=== PATIENT | female | born 1990 ===

== ENCOUNTER 2021-03-08 12:39 | Inpatient (IN) | payer MEDICAID ==
[2021-03-08] MEDS ORDERED: Oxytocin/Normal Saline 60 UNIT/1,000 ML BAG ONE (12:51)
[2021-03-08] MEDS ORDERED: ePHEDrine 50 MG/ML SDV IVPUSH PRN (13:02)
[2021-03-08] MEDS ORDERED: Acetaminophen/oxyCODONE 325-5 MG Tab PO PRN (13:02)
[2021-03-08] MEDS ORDERED: Tranexamic Acid 1,000 MG in Sodium Chloride 0.9% 100 ML IV PRN ×4 (13:02)
[2021-03-08] MEDS ORDERED: Oxytocin 10 Units/1 ML SDV IM PRN (13:02)
[2021-03-08] MEDS ORDERED: Methylergonovine 0.2 MG/1 ML Amp IM PRN (13:02)
[2021-03-08] MEDS ORDERED: Naloxone 2 MG/2 ML Syringe IVPUSH PRN (13:02)
[2021-03-08] MEDS ORDERED: Sodium Chloride 0.9% 10 ML Syringe FLUSH PRN (13:02)
[2021-03-08] MEDS ORDERED: Misoprostol 400 MCG (4 X 100 MCG TAB) RECTAL PRN (13:02)
[2021-03-08] MEDS ORDERED: Carboprost Tromethamine 250 MCG/1 ML Amp IM PRN ×2 (13:02)
[2021-03-08] MEDS ORDERED: Citric Acid/Sodium Citrate Solution 30 ML Cup PO ONE (13:02)
[2021-03-08] MEDS ORDERED: diphenhydrAMINE 50 MG/ML SDV IVPUSH PRN (13:02)
[2021-03-08] MEDS ORDERED: Methylergonovine 0.2 MG Tab PO PRN (13:02)
[2021-03-08] MEDS ORDERED: Acetaminophen 325 MG Tab PO PRN (13:02)
[2021-03-08] MEDS ORDERED: Oxytocin/Normal Saline 30 UNIT/500 ML BAG IV SCH (13:15)
[2021-03-08] MEDS ORDERED: Lactated Ringers 1,000 ML IV SCH ×2 (13:15)
[2021-03-08] MEDS ORDERED: Ketorolac 30 MG/ML SDV IVPUSH ONE (13:31)
[2021-03-08] MEDS ORDERED: Morphine PF 10 MG/10 ML SDV ONE (13:31)
--- NOTE | 2021-03-08 13:32 | HP ---
CHIEF COMPLAINT: "I am having contractions and some bleeding." HISTORY OF PRESENT ILLNESS: Ms. Virk is a 31-year-old, 5, para 3-1-0-4 female, last menstrual period unsure. EDC is 03/20/2021, EGA 38 and 1/7 weeks' gestation who reports to [facility] in the Labor and Delivery Department by ambulance from [place]. She has been having some contractions and bloody show. She has had 4 previous sections, and in her last section she did have a dehiscence of the uterine scar, so we do not want her to labor at all. She denies any nausea, vomiting, or diarrhea. No fever or chills. No hematochezia, hematemesis, or hematuria. No dysuria, frequency, or urgency with urination. No leg pain, leg edema, or back pain. No headaches, blurred vision, epigastric pain, or scotomata. PAST MEDICAL HISTORY: Positive for hepatitis C, depression, anxiety, posttraumatic stress disorder, but no history of diabetes, hypertension, heart disease, seizure disorder, thyroid disorder, thromboembolic disease, asthma, or breast lesions. FAMILY HISTORY: Positive for arthritis, gallbladder issues, diabetes, prostate cancer, depression, anxiety, and stroke. SOCIAL HISTORY: She smokes 2 to 3 cigarettes per day. She denies any alcohol use or illicit drug use. She does not use caffeine. She has no domestic violence issues. She feels safe at home. Her significant other is Gilberto Bains Junior. They live in [place]. GYNECOLOGICAL HISTORY: Menarche at age 14. She has had no history of STIs or abnormal Pap smears. OBSTETRICAL HISTORY: 05/02/2010, delivery of a 6 pounds 13 ounces female infant via section at term. 12/25/2011, delivery of a 34 and 6/7 week viable male infant via section. 07/10/2018, delivery of a viable female infant at 38 and 6/7 weeks' gestation, weighing 6 pounds 6 ounces. 12/13/2019, delivery of a viable male infant via repeat section in [place] at term. PAST SURGICAL HISTORY: section x4. MEDICATIONS: vitamins. ALLERGIES: No known drug allergies. LABORATORY DATA: Blood type O positive, rubella immune, syphilis nonreactive, hepatitis B surface antigen negative, HIV nonreactive, group B strep negative, hepatitis C positive with a quantitative positive of [id number]. ASSESSMENT: 1. 38 and 1/7 week intrauterine . 2. Previous section x4. 3. Jennie with bloody show noted. 4. Previous section with a uterine dehiscence. 5. Positive cannabis on urine drug screen during the . PLAN: 1. The patient is here for a repeat section. 2. The risks, benefits, complications, and side effects of the procedure including infection, bleeding, injury to the bowel, bladder, ureters, blood vessels, and other organs were discussed with the patient. She understands this and all questions were answered. 3. Informed consent obtained and signed. 4. The patient received 2 g of Ancef IV before the procedure. 5. We discussed the risk of having a fifth section and all the complications that can occur with it including hysterectomy, hemorrhage. [facility] /[id number]
[2021-03-08] MEDS: Lactated Ringers 1,000 ML IV SCH (16:30)
[2021-03-08] MEDS: Ondansetron 4 MG/2 ML SDV IVPUSH PRN ×2 (16:38→20:39)
--- NOTE | 2021-03-08 17:10 | OR ---
DATE: 03/08/2021 PREOPERATIVE DIAGNOSES: 1. 38 and 1/7 week intrauterine . 2. Early labor. 3. Previous section x4. 4. Previous uterine dehiscence. POSTOPERATIVE DIAGNOSES: 1. 38 and 1/7 week intrauterine . 2. Early labor. 3. Previous section x4. 4. Previous uterine dehiscence. 5. Delivery of a viable male weighing 7 pounds 6 ounces, 20 inches long with score of 8 at 1 minute, 9 at 5 minutes. PROCEDURE: Repeat low-transverse section via Pfannenstiel skin incision. ASSISTANTS: 1. Valeria Mcdonnell MD. 2. Chip Link MD, 3rd year, vice president payer. COMPLICATIONS: None. FLUIDS: Crystalloids plus LR. DRAINS: Foster catheter. PATHOLOGY: None sent. ANESTHESIA: Spinal anesthesia with Duramorph. ESTIMATED BLOOD LOSS: 700 mL. FINDINGS: Normal uterus, tubes, and ovaries. She had a large amount of scarring in the subcutaneous tissue and omental-to- anterior abdominal wall adhesions. Viable male weighing 7 pounds 6 ounces, 20 inches long with score of 9 at 1 minute, 9 at 5 minutes. DETAILS OF PROCEDURE: The patient was taken to the operating room with an IV running. She was placed supine on the operating room table. After adequate spinal anesthesia was obtained, she was prepped and draped in usual sterile fashion in the dorsal supine position with a leftward tilt. A Pfannenstiel skin incision was made through a previous scar and this was carried down to the fascia. The fascia was nicked in the midline, extended laterally. The rectus muscles were already in the midline and I did not have to separate them through the length of the peritoneal cavity into where the uterus was located very close to the bladder. The bladder was scarred and very high. We dissected the bladder down some and took off the omentum from the anterior abdominal wall that was blocking the uterus. Excellent hemostasis was noted. A bladder blade was placed. Low-transverse incision in the uterus was accomplished. This was extended laterally. The 's head was then brought through the incision site as well as rest of the . The nose and mouth were suctioned. The cord was clamped and cut. The was handed off to the awaiting nurses in attendance. Cord blood was obtained. The placenta was then delivered by simple expression intact. The uterus was then externalized and cleared of all clots and debris. The uterus was then reapproximated with 2- layered closure of #1 Vicryl suture in a running, locked fashion. Excellent hemostasis was noted. The uterus, tubes, ovaries were rechecked. They all appeared normal and there was excellent hemostasis. The uterus was returned to the abdomen. The gutters were cleared of all clots and debris. Excellent hemostasis was again noted. At this point, the rectus muscles and peritoneum were reapproximated the best we could. Because of all the scarring and how thinned out the tissue was, it was very difficult, but we did bring them together with 0 chromic suture in a running, nonlocked fashion. Excellent hemostasis was noted. At this point, the fascia was then reapproximated with 0 PDS suture in a running, nonlocked fashion. Excellent hemostasis was noted. I then undermined the skin edges because the scarring was puckering it terribly. So after undermining, there was good tissue reapproximation. Again, irrigation with sterile water occurred and the skin was reapproximated with 3-0 Monocryl suture in a running subcuticular fashion. Once the skin was closed, Dermabond was placed as a dressing. The patient tolerated the procedure quite well. All sponges, needle, and instrument counts were correct by the nurse in attendance x2. There was clear yellow urine noted to emanate from the Foster catheter throughout the entire procedure. The patient received 2 g of Ancef IV before the procedure. The patient received 20 units of Pitocin IV after delivery of the placenta. The patient was taken to PACU awake in stable condition. [facility] /[id number] ALAN
[2021-03-08] MEDS: Simethicone 80 MG Tab.Chew PO SCH (20:34)
[2021-03-08] MEDS: Ketorolac 30 MG/ML SDV IVPUSH SCH (20:41)
[2021-03-09] MEDS: Ketorolac 30 MG/ML SDV IVPUSH SCH ×2 (03:02→10:06)
[2021-03-09] MEDS: Lactated Ringers 1,000 ML IV SCH (06:28)
--- NOTE | 2021-03-09 09:41 | PCM.SURGPN ---
- General Info Date of Service: 03/09/21 (PPD/POD # 1 S/P Repeat LTC/S) Date of Surgery/Procedure: 03/08/21 POD#: 1 Admission Diagnosis/Problem: section Functional Status: Reports: Pain Controlled, Tolerating Diet, Ambulating - Review of Systems General: Reports: No Symptoms HEENT: Reports: No Symptoms Pulmonary: Reports: No Symptoms Cardiovascular: Reports: No Symptoms Gastrointestinal: Reports: No Symptoms Genitourinary: Reports: No Symptoms Musculoskeletal: Reports: No Symptoms Skin: Reports: No Symptoms Neurological: Reports: No Symptoms Psychiatric: Reports: No Symptoms - Patient Data Vitals - Most Recent: Last Vital Signs Temp 97.8 F 03/09/21 00:00 Pulse 83 03/09/21 00:00 Resp 16 03/09/21 00:00 BP 89/59 L 03/09/21 00:00 Pulse Ox 96 03/09/21 00:00 Weight - Most Recent: 153 lb I&O - Last 24 Hours: Intake & Output 03/08/21 03/09/21 03/09/21 22:59 06:59 14:59 Intake Total 135 Output Total 125 200 Balance 10 -200 Lab Results Last 24 Hrs: Laboratory Results - last 24 hr 03/08/21 03/08/21 03/09/21 Range/Units 13:20 13:20 06:05 WBC 10.2 H 10.0 (5.0-10.0) 10^3/uL RBC 3.98 L 3.22 L (4.2-5.4) 10^6/uL Hgb 11.4 L 9.2 L D (12.0-16.0) g/dL Hct 35.1 L 28.6 L (37.0-47.0) % MCV 88.2 88.8 (80-100) fL MCH 28.6 28.6 (27.0-34.0) pg MCHC 32.5 L 32.2 L (33.0-35.0) g/dL Plt Count 140 L 139 L (150-450) 10^3/uL Neut % (Auto) 78.8 H (42.2-75.2) % Lymph % (Auto) 14.6 L (20.5-50.1) % Dade % (Auto) 4.9 (2-8) % Eos % (Auto) 1.4 (1.0-3.0) % Baso % (Auto) 0.3 (0.0-1.0) % Blood Type O POSITIVE Gel Antibody Screen Negative Med Orders - Current: Current Medications Acetaminophen (Acetaminophen 325 Mg Tab) 650 mg PO Q6H PRN PRN Reason: Mild Pain (1-3) or Fever Carboprost Tromethamine (Carboprost Tromethamine 250 Mcg/1 Ml Amp) 250 mcg IM ASDIRECTED PRN PRN Reason: Excessive vaginal bleeding Carboprost Tromethamine (Carboprost Tromethamine 250 Mcg/1 Ml Amp) 250 mcg IM ONETIME PRN PRN Reason: Bleeding Diphenhydramine HCl (Diphenhydramine 50 Mg/Ml Sdv) 25 mg IVPUSH Q6H PRN PRN Reason: Itching or Nausea Docusate Sodium (Docusate Sodium 100 Mg Cap) 100 mg PO Q12H PRN PRN Reason: Constipation Ephedrine Sulfate (Ephedrine 50 Mg/Ml Sdv) 5 mg IVPUSH SEECOMMENT PRN PRN Reason: Other Lactated Ringer's (Ringers, Lactated) 1,000 mls @ 125 mls/hr IV ASDIRECTED [facility] Last Admin: 03/09/21 06:28 Dose: 125 mls/hr Documented by: Lactated Ringer's (Ringers, Lactated) 1,000 mls @ 500 mls/hr IV .BOLUS ROBERTA Tranexamic Acid 1,000 mg/ (Sodium Chloride) 110 mls @ 660 mls/hr IV ONETIME PRN PRN Reason: Bleeding Oxytocin/Sodium Chloride (Pitocin In Ns 30 Unit/500 Ml) 30 unit in 500 mls @ 2 mls/hr IV TITRATE ROBERTA; Protocol Last Admin: 03/08/21 14:47 Dose: 125 munits/min, 125 mls/hr Documented by: Lactated Ringer's (Ringers, Lactated) 1,000 mls @ 125 mls/hr IV ASDIRECTED ROBERTA Last Admin: 03/08/21 21:48 Dose: 125 mls/hr Documented by: Tranexamic Acid 1,000 mg/ (Sodium Chloride) 110 mls @ 660 mls/hr IV ONETIME PRN PRN Reason: Bleeding Ibuprofen (Ibuprofen 800 Mg Tab) 800 mg PO Q8H PRN PRN Reason: Cramping Methylergonovine Maleate (Methylergonovine 0.2 Mg Tab) 0.2 mg PO ONETIME PRN PRN Reason: Excessive vaginal bleeding Methylergonovine Maleate (Methylergonovine 0.2 Mg/1 Ml Amp) 0.2 mg IM ONETIME PRN PRN Reason: Excessive Vaginal Bleeding Misoprostol (Misoprostol 400 Mcg (4 X 100 Mcg Tab)) 800 mcg RECTAL ASDIRECTED PRN PRN Reason: Excessive bleeding Naloxone HCl (Naloxone 2 Mg/2 Ml Syringe) 0.1 mg IVPUSH SEECOMMENT PRN PRN Reason: Respiratory Depression Ondansetron HCl (Ondansetron 4 Mg/2 Ml Sdv) 4 mg IVPUSH Q4H PRN PRN Reason: Nausea/Vomiting Last Admin: 03/08/21 20:39 Dose: 4 mg Documented by: Oxycodone/Acetaminophen (Acetaminophen/Oxycodone 325-5 Mg Tab) 1 tab PO Q4H PRN PRN Reason: Pain (moderate 4-6) Oxycodone/Acetaminophen (Acetaminophen/Oxycodone 325-5 Mg Tab) 2 tab PO Q4H PRN PRN Reason: Pain (moderate 4-6) Oxytocin (Oxytocin 10 Units/1 Ml Sdv) 10 unit IM ONETIME PRN PRN Reason: Excessive vaginal bleeding Prenat Multivit/[place]/Iron/Folic Ac ( Multivitamin With Calcium/Folic Acid/Iron Tab) 1 each PO DAILY [facility] Simethicone (Simethicone 80 Mg Tab.Chew) 160 mg PO QID ROBERTA Last Admin: 03/08/21 20:34 Dose: Not Given Documented by: Sodium Chloride (Sodium Chloride 0.9% 10 Ml Syringe) 10 ml FLUSH ASDIRECTED PRN PRN Reason: Keep Vein Open Discontinued Medications Citric Acid/Sodium Citrate (Citric Acid/Sodium Citrate Solution 30 Ml Cup) 30 ml PO ONETIME ONE Stop: 03/08/21 13:03 Last Admin: 03/08/21 20:34 Dose: Not Given Documented by: Cefazolin Sodium/Dextrose (Ancef 2 Gm/50 Ml) Confirm Administered Dose 50 mls @ as directed .ROUTE .STK-MED ONE Stop: 03/08/21 12:52 Oxytocin/Sodium Chloride (Pitocin In Ns 30 Unit/500 Ml) Confirm Administered Dose 60 unit in 1,000 mls @ as directed .ROUTE .STK-MED ONE Stop: 03/08/21 12:52 Cefazolin Sodium/Dextrose (Ancef 2 Gm/50 Ml) 50 mls @ 100 mls/hr IV ONETIME ONE Stop: 03/08/21 14:48 Last Admin: 03/08/21 13:31 Dose: 100 mls/hr Documented by: Ketorolac Tromethamine (Ketorolac 30 Mg/Ml Sdv) 15 mg IVPUSH Q6H ROBERTA Stop: 03/09/21 08:31 Last Admin: 03/09/21 03:02 Dose: 15 mg Documented by: - Exam Wound/Incisions: Healing Well, Dressing Dry and Intact, No Drainage Quality Assessment: Urine Catheter General: Alert, Oriented, Cooperative, No Acute Distress HEENT: Pupils Equal, Pupils Reactive, EOMI, Mucous Membr. Moist/[place] Neck: Supple Lungs: Clear to Auscultation, Normal Respiratory Effort Cardiovascular: Regular Rate, Regular Rhythm GI/Abdominal Exam: Normal Bowel Sounds, Soft, Non-Tender, No Distention Extremities: Normal Inspection, Normal Range of Motion, Non-Tender, No Pedal Edema, Normal Capillary Refill Skin: Warm, Dry, Intact Neurological: No New Focal Deficit, Normal Gait, Normal Speech Psy/Mental Status: Alert, Normal Affect, Normal Mood Sepsis Event Note - Evaluation Sepsis Screening Result: No Definite Risk - Focused Exam Vital Signs: Vital Signs Temp Pulse Resp BP Pulse Ox 03/09/21 00:00 97.8 F 83 16 89/59 L 96 - Problem List Review Problem List Initiated/Reviewed/Updated: Yes - My Orders Last 24 Hours: Active Orders 24 hr Category Date Time Status Patient Status [ADT] Routine ADT 03/08/21 13:03 Active Antiembolic Devices [RC] 08,20 Care 03/08/21 13:05 Active Bedrest [RC] ASDIRECTED Care 03/08/21 13:03 Active Communication Order [RC] PER UNIT ROUTINE Care 03/08/21 13:03 Active Communication Order [RC] PER UNIT ROUTINE Care 03/08/21 13:03 Active Communication Order [RC] Per Unit Routine Care 03/08/21 13:03 Active Intake and Output [RC] Q8H Care 03/08/21 13:09 Active Notify Provider Intake and Out [RC] ASDIRECTED Care 03/08/21 13:09 Active Notify Provider Vital Signs OB [RC] ASDIRECTED Care 03/08/21 13:03 Active RT Incentive Spirometry [RC] Q2HWA Care 03/08/21 13:03 Active Urinary Catheter Removal [RC] Per Unit Routine Care 03/08/21 13:03 Active Vital Signs [RC] PER UNIT ROUTINE Care 03/08/21 13:03 Active Vital Signs [RC] PER UNIT ROUTINE Care 03/08/21 13:03 Active Nothing Per Oral Diet [DIET] Diet 03/08/21 Dinner Active Nothing Per Oral Diet [DIET] Diet 03/08/21 Lunch Active Acetaminophen [TylenoL] Med 03/08/21 13:02 Active 650 mg PO Q6H PRN Acetaminophen/oxyCODONE [Percocet 325-5 MG] Med 03/08/21 13:02 Active 1 tab PO Q4H PRN Acetaminophen/oxyCODONE [Percocet 325-5 MG] Med 03/08/21 13:02 Active 2 tab PO Q4H PRN Carboprost Tromethamine [Hemabate DS] Med 03/08/21 13:02 Active 250 mcg IM ASDIRECTED PRN Carboprost Tromethamine [Hemabate DS] Med 03/08/21 13:02 Active 250 mcg IM ONETIME PRN Docusate Sodium [Colace] Med 03/08/21 13:02 Active 100 mg PO Q12H PRN Ibuprofen [Motrin] Med 03/09/21 16:30 Active 800 mg PO Q8H PRN Lactated Ringers [Ringers, Lactated] 1,000 ml Med 03/08/21 13:15 Active IV .BOLUS Lactated Ringers [Ringers, Lactated] 1,000 ml Med 03/08/21 13:15 Active IV ASDIRECTED Lactated Ringers [Ringers, Lactated] 1,000 ml Med 03/08/21 13:15 Active IV ASDIRECTED Methylergonovine [Methergine] Med 03/08/21 13:02 Active 0.2 mg IM ONETIME PRN Methylergonovine [Methergine] Med 03/08/21 13:02 Active 0.2 mg PO ONETIME PRN Naloxone [Narcan] Med 03/08/21 13:02 Active 0.1 mg IVPUSH SEECOMMENT PRN Ondansetron [Zofran] Med 03/08/21 13:02 Active 4 mg IVPUSH Q4H PRN Oxytocin [Pitocin] Med 03/08/21 13:02 Active 10 unit IM ONETIME PRN Oxytocin/Normal Saline [Pitocin in NS 30 UNIT/500 ML] Med 03/08/21 13:15 Active 30 unit in 500 ml IV TITRATE Vit with Ca/FA/Iron [ Plus Iron] Med 03/09/21 09:00 Active 1 each PO DAILY Simethicone Med 03/08/21 17:00 Active 160 mg PO QID Sodium Chloride 0.9% [Saline Flush] Med 03/08/21 13:02 Active 10 ml FLUSH ASDIRECTED PRN Tranexamic Acid [Cyklokapron] 1,000 mg Med 03/08/21 13:02 Active Sodium Chloride 0.9% [Normal Saline] 100 ml IV ONETIME Tranexamic Acid [Cyklokapron] 1,000 mg Med 03/08/21 13:02 Active Sodium Chloride 0.9% [Normal Saline] 100 ml IV ONETIME diphenhydrAMINE [Benadryl] Med 03/08/21 13:02 Active 25 mg IVPUSH Q6H PRN ePHEDrine [ePHEDrine sulfate] Med 03/08/21 13:02 Active 5 mg IVPUSH SEECOMMENT PRN miSOPROStoL [Cytotec] Med 03/08/21 13:02 Active 800 mcg RECTAL ASDIRECTED PRN Antiembolic Hose [OM.PC] Per Unit Routine Ot 03/08/21 13:03 Ordered Assess Lochia [WOMSER] Per Unit Routine Ot 03/08/21 13:03 Ordered Assess Uterine Involution [WOMSER] Per Unit Routine Ot 03/08/21 13:03 Ordered Breast Pump [WOMSER] Per Unit Routine Ot 03/08/21 13:03 Ordered Peripheral IV Insertion Adult [OM.PC] Routine Ot 03/08/21 13:03 Ordered Schedule Procedure [COMM] Per Unit Routine Ot 03/08/21 13:03 Ordered Sequential Compression Device [OM.PC] Per Unit Routine Ot 03/08/21 13:03 Ordered Sequential Compression Device [OM.PC] Routine Ot 03/08/21 13:03 Ordered Resuscitation Status Routine Resus Stat 03/08/21 13:02 Ordered Medication Orders Acetaminophen (Acetaminophen 325 Mg Tab) 650 mg PO Q6H PRN PRN Reason: Mild Pain (1-3) or Fever Carboprost Tromethamine (Carboprost Tromethamine 250 Mcg/1 Ml Amp) 250 mcg IM ASDIRECTED PRN PRN Reason: Excessive vaginal bleeding Carboprost Tromethamine (Carboprost Tromethamine 250 Mcg/1 Ml Amp) 250 mcg IM ONETIME PRN PRN Reason: Bleeding Diphenhydramine HCl (Diphenhydramine 50 Mg/Ml Sdv) 25 mg IVPUSH Q6H PRN PRN Reason: Itching or Nausea Docusate Sodium (Docusate Sodium 100 Mg Cap) 100 mg PO Q12H PRN PRN Reason: Constipation Ephedrine Sulfate (Ephedrine 50 Mg/Ml Sdv) 5 mg IVPUSH SEECOMMENT PRN PRN Reason: Other Lactated Ringer's (Ringers, Lactated) 1,000 mls @ 125 mls/hr IV ASDIRECTED [facility] Last Admin: 03/09/21 06:28 Dose: 125 mls/hr Documented by: Infusion: 03/09/21 00:30 Dose: 125 mls/hr Documented by: Admin: 03/08/21 16:30 Dose: 125 mls/hr Documented by: NAVEEN Lactated Ringer's (Ringers, Lactated) 1,000 mls @ 500 mls/hr IV .[facility]US [facility] Tranexamic Acid 1,000 mg/ (Sodium Chloride) 110 mls @ 660 mls/hr IV ONETIME PRN PRN Reason: Bleeding Oxytocin/Sodium Chloride (Pitocin In Ns 30 Unit/500 Ml) 30 unit in 500 mls @ 2 mls/hr IV TITRATE ROBERTA; Protocol Last Admin: 03/08/21 14:47 Dose: 125 munits/min, 125 mls/hr Documented by: FREDY Lactated Ringer's (Ringers, Lactated) 1,000 mls @ 125 mls/hr IV ASDIRECTED [facility] Last Admin: 03/08/21 21:48 Dose: 125 mls/hr Documented by: FRANCISCA Tranexamic Acid 1,000 mg/ (Sodium Chloride) 110 mls @ 660 mls/hr IV ONETIME PRN PRN Reason: Bleeding Ibuprofen (Ibuprofen 800 Mg Tab) 800 mg PO Q8H PRN PRN Reason: Cramping Methylergonovine Maleate (Methylergonovine 0.2 Mg Tab) 0.2 mg PO ONETIME PRN PRN Reason: Excessive vaginal bleeding Methylergonovine Maleate (Methylergonovine 0.2 Mg/1 Ml Amp) 0.2 mg IM ONETIME PRN PRN Reason: Excessive Vaginal Bleeding Misoprostol (Misoprostol 400 Mcg (4 X 100 Mcg Tab)) 800 mcg RECTAL ASDIRECTED PRN PRN Reason: Excessive bleeding Naloxone HCl (Naloxone 2 Mg/2 Ml Syringe) 0.1 mg IVPUSH SEECOMMENT PRN PRN Reason: Respiratory Depression Ondansetron HCl (Ondansetron 4 Mg/2 Ml Sdv) 4 mg IVPUSH Q4H PRN PRN Reason: Nausea/Vomiting Last Admin: 03/08/21 20:39 Dose: 4 mg Documented by: Admin: 03/08/21 16:38 Dose: 4 mg Documented by: NAVEEN Oxycodone/Acetaminophen (Acetaminophen/Oxycodone 325-5 Mg Tab) 1 tab PO Q4H PRN PRN Reason: Pain (moderate 4-6) Oxycodone/Acetaminophen (Acetaminophen/Oxycodone 325-5 Mg Tab) 2 tab PO Q4H PRN PRN Reason: Pain (moderate 4-6) Oxytocin (Oxytocin 10 Units/1 Ml Sdv) 10 unit IM ONETIME PRN PRN Reason: Excessive vaginal bleeding Prenat Multivit/[place]/Iron/Folic Ac ( Multivitamin With Calcium/Folic Acid/Iron Tab) 1 each PO DAILY ROBERTA Simethicone (Simethicone 80 Mg Tab.Chew) 160 mg PO QID ROBERTA Last Admin: 03/08/21 20:34 Dose: Not Given Documented by: Admin: 03/08/21 20:34 Dose: Not Given Documented by: NAVEEN Sodium Chloride (Sodium Chloride 0.9% 10 Ml Syringe) 10 ml FLUSH ASDIRECTED PRN PRN Reason: Keep Vein Open - Assessment Assessment (Free Text/Narrative):: PPD/POD # 1 Doing well Chronic anemia of Generalized itching - Plan Plan (Free Text/Narrative):: Continue present care PNV and Iron Vistaril and Pepcid for itching
[2021-03-09] MEDS: Prenatal Multivitamin with Calcium/Folic Acid/Iron Tab PO SCH (10:07)
[2021-03-09] MEDS: Famotidine 20 MG Tab PO SCH (10:07)
[2021-03-09] MEDS: Simethicone 80 MG Tab.Chew PO SCH ×4 (10:07→22:01)
[2021-03-09] MEDS: hydrOXYzine HCl 25 MG Tab PO SCH ×3 (13:39→22:04)
[2021-03-09] MEDS: Ibuprofen 800 MG Tab PO PRN (17:00)
[2021-03-09] MEDS: Acetaminophen/oxyCODONE 325-5 MG Tab PO PRN ×2 (17:01→22:01)
[2021-03-09] MEDS: Docusate Sodium 100 MG Cap PO PRN (22:01)
[2021-03-10] MEDS: Acetaminophen/oxyCODONE 325-5 MG Tab PO PRN ×2 (03:04→08:50)
[2021-03-10] MEDS: Ibuprofen 800 MG Tab PO PRN (04:39)
--- NOTE | 2021-03-10 04:42 | PCM.SURGPN ---
- General Info Date of Service: 03/10/21 (PPD/POD # 2 S/P Repeat Cesearean section) Date of Surgery/Procedure: 03/08/21 POD#: 2 Functional Status: Reports: Pain Controlled, Tolerating Diet, Ambulating, Urinating - Review of Systems General: Reports: No Symptoms HEENT: Reports: No Symptoms Pulmonary: Reports: No Symptoms Cardiovascular: Reports: No Symptoms Gastrointestinal: Reports: No Symptoms Genitourinary: Reports: No Symptoms Musculoskeletal: Reports: No Symptoms Skin: Reports: No Symptoms Neurological: Reports: No Symptoms Psychiatric: Reports: No Symptoms - Patient Data Vitals - Most Recent: Last Vital Signs Temp 97.8 F 03/09/21 20:00 Pulse 69 03/09/21 20:00 Resp 16 03/09/21 20:00 BP 93/52 L 03/09/21 20:00 Pulse Ox 96 03/09/21 00:00 Weight - Most Recent: 153 lb I&O - Last 24 Hours: Intake & Output 03/09/21 03/09/21 03/10/21 14:59 22:59 06:59 Intake Total 2075 650 Output Total 1500 Balance 2075 -850 Lab Results Last 24 Hrs: Laboratory Results - last 24 hr 03/09/21 Range/Units 06:05 WBC 10.0 (5.0-10.0) 10^3/uL RBC 3.22 L (4.2-5.4) 10^6/uL Hgb 9.2 L D (12.0-16.0) g/dL Hct 28.6 L (37.0-47.0) % MCV 88.8 (80-100) fL MCH 28.6 (27.0-34.0) pg MCHC 32.2 L (33.0-35.0) g/dL Plt Count 139 L (150-450) 10^3/uL Med Orders - Current: Current Medications Acetaminophen (Acetaminophen 325 Mg Tab) 650 mg PO Q6H PRN PRN Reason: Mild Pain (1-3) or Fever Carboprost Tromethamine (Carboprost Tromethamine 250 Mcg/1 Ml Amp) 250 mcg IM ASDIRECTED PRN PRN Reason: Excessive vaginal bleeding Carboprost Tromethamine (Carboprost Tromethamine 250 Mcg/1 Ml Amp) 250 mcg IM ONETIME PRN PRN Reason: Bleeding Diphenhydramine HCl (Diphenhydramine 50 Mg/Ml Sdv) 25 mg IVPUSH Q6H PRN PRN Reason: Itching or Nausea Last Admin: 03/09/21 10:25 Dose: 25 mg Documented by: Docusate Sodium (Docusate Sodium 100 Mg Cap) 100 mg PO Q12H PRN PRN Reason: Constipation Last Admin: 03/09/21 22:01 Dose: 100 mg Documented by: Ephedrine Sulfate (Ephedrine 50 Mg/Ml Sdv) 5 mg IVPUSH SEECOMMENT PRN PRN Reason: Other Famotidine (Famotidine 20 Mg Tab) 20 mg PO DAILY [facility] Last Admin: 03/09/21 10:07 Dose: 20 mg Documented by: Hydroxyzine HCl (Hydroxyzine Hcl 25 Mg Tab) 50 mg PO QID [facility] Last Admin: 03/09/21 22:04 Dose: 50 mg Documented by: Lactated Ringer's (Ringers, Lactated) 1,000 mls @ 125 mls/hr IV ASDIRECTED [facility] Last Admin: 03/09/21 06:28 Dose: 125 mls/hr Documented by: Lactated Ringer's (Ringers, Lactated) 1,000 mls @ 500 mls/hr IV .BOLUS ROBERTA Tranexamic Acid 1,000 mg/ (Sodium Chloride) 110 mls @ 660 mls/hr IV ONETIME PRN PRN Reason: Bleeding Oxytocin/Sodium Chloride (Pitocin In Ns 30 Unit/500 Ml) 30 unit in 500 mls @ 2 mls/hr IV TITRATE [facility]; Protocol Last Admin: 03/08/21 14:47 Dose: 125 munits/min, 125 mls/hr Documented by: Lactated Ringer's (Ringers, Lactated) 1,000 mls @ 125 mls/hr IV ASDIRECTED [facility] Last Admin: 03/08/21 21:48 Dose: 125 mls/hr Documented by: Tranexamic Acid 1,000 mg/ (Sodium Chloride) 110 mls @ 660 mls/hr IV ONETIME PRN PRN Reason: Bleeding Ibuprofen (Ibuprofen 800 Mg Tab) 800 mg PO Q8H PRN PRN Reason: Cramping Last Admin: 03/09/21 17:00 Dose: 800 mg Documented by: Methylergonovine Maleate (Methylergonovine 0.2 Mg Tab) 0.2 mg PO ONETIME PRN PRN Reason: Excessive vaginal bleeding Methylergonovine Maleate (Methylergonovine 0.2 Mg/1 Ml Amp) 0.2 mg IM ONETIME PRN PRN Reason: Excessive Vaginal Bleeding Misoprostol (Misoprostol 400 Mcg (4 X 100 Mcg Tab)) 800 mcg RECTAL ASDIRECTED PRN PRN Reason: Excessive bleeding Naloxone HCl (Naloxone 2 Mg/2 Ml Syringe) 0.1 mg IVPUSH SEECOMMENT PRN PRN Reason: Respiratory Depression Ondansetron HCl (Ondansetron 4 Mg/2 Ml Sdv) 4 mg IVPUSH Q4H PRN PRN Reason: Nausea/Vomiting Last Admin: 03/08/21 20:39 Dose: 4 mg Documented by: Oxycodone/Acetaminophen (Acetaminophen/Oxycodone 325-5 Mg Tab) 1 tab PO Q4H PRN PRN Reason: Pain (moderate 4-6) Oxycodone/Acetaminophen (Acetaminophen/Oxycodone 325-5 Mg Tab) 2 tab PO Q4H PRN PRN Reason: Pain (moderate 4-6) Last Admin: 03/10/21 03:04 Dose: 2 tab Documented by: Oxytocin (Oxytocin 10 Units/1 Ml Sdv) 10 unit IM ONETIME PRN PRN Reason: Excessive vaginal bleeding Prenat Multivit/[place]/Iron/Folic Ac ( Multivitamin With Calcium/Folic Acid/Iron Tab) 1 each PO DAILY [facility] Last Admin: 03/09/21 10:07 Dose: 1 each Documented by: Simethicone (Simethicone 80 Mg Tab.Chew) 160 mg PO QID [facility] Last Admin: 03/09/21 22:01 Dose: 160 mg Documented by: Sodium Chloride (Sodium Chloride 0.9% 10 Ml Syringe) 10 ml FLUSH ASDIRECTED PRN PRN Reason: Keep Vein Open Discontinued Medications Citric Acid/Sodium Citrate (Citric Acid/Sodium Citrate Solution 30 Ml Cup) 30 ml PO ONETIME ONE Stop: 03/08/21 13:03 Last Admin: 03/08/21 20:34 Dose: Not Given Documented by: Cefazolin Sodium/Dextrose (Ancef 2 Gm/50 Ml) Confirm Administered Dose 50 mls @ as directed .ROUTE .STK-MED ONE Stop: 03/08/21 12:52 Oxytocin/Sodium Chloride (Pitocin In Ns 30 Unit/500 Ml) Confirm Administered Dose 60 unit in 1,000 mls @ as directed .ROUTE .STK-MED ONE Stop: 03/08/21 12:52 Cefazolin Sodium/Dextrose (Ancef 2 Gm/50 Ml) 50 mls @ 100 mls/hr IV ONETIME ONE Stop: 03/08/21 14:48 Last Admin: 03/08/21 13:31 Dose: 100 mls/hr Documented by: Ketorolac Tromethamine (Ketorolac 30 Mg/Ml Sdv) 15 mg IVPUSH Q6H ROBERTA Stop: 03/09/21 08:31 Last Admin: 03/09/21 10:06 Dose: 15 mg Documented by: - Exam Wound/Incisions: Healing Well, Dressing Dry and Intact, No Drainage General: Alert, Oriented, Cooperative, No Acute Distress HEENT: Pupils Equal, Pupils Reactive, EOMI, Mucous Membr. Moist/[place] Neck: Supple Lungs: Clear to Auscultation, Normal Respiratory Effort Cardiovascular: Regular Rate, Regular Rhythm, No Murmurs GI/Abdominal Exam: Normal Bowel Sounds, Soft, Non-Tender, No Distention, Other (Clean dry intact No erythema or drainage some ecchymosis around right side of wound) Extremities: Normal Inspection, Normal Range of Motion, Non-Tender, No Pedal Edema Skin: Warm, Dry, Intact Neurological: No New Focal Deficit, Normal Gait, Normal Speech Psy/Mental Status: Alert, Normal Affect, Normal Mood Sepsis Event Note - Evaluation Sepsis Screening Result: No Definite Risk - Focused Exam Vital Signs: Vital Signs Temp Pulse Resp BP 03/09/21 20:00 97.8 F 69 16 93/52 L - Problem List Review Problem List Initiated/Reviewed/Updated: Yes - My Orders Last 24 Hours: Active Orders 24 hr Category Date Time Status Ready for Discharge [RC] PER UNIT ROUTINE Care 03/10/21 04:36 Ordered Famotidine [Pepcid] Med 03/09/21 09:45 Active 20 mg PO DAILY Ibuprofen [Motrin] Med 03/09/21 16:30 Active 800 mg PO Q8H PRN Vit with Ca/FA/Iron [ Plus Iron] Med 03/09/21 09:00 Active 1 each PO DAILY hydrOXYzine HCL [Atarax] Med 03/09/21 13:00 Active 50 mg PO QID Medication Orders Acetaminophen (Acetaminophen 325 Mg Tab) 650 mg PO Q6H PRN PRN Reason: Mild Pain (1-3) or Fever Carboprost Tromethamine (Carboprost Tromethamine 250 Mcg/1 Ml Amp) 250 mcg IM ASDIRECTED PRN PRN Reason: Excessive vaginal bleeding Carboprost Tromethamine (Carboprost Tromethamine 250 Mcg/1 Ml Amp) 250 mcg IM ONETIME PRN PRN Reason: Bleeding Diphenhydramine HCl (Diphenhydramine 50 Mg/Ml Sdv) 25 mg IVPUSH Q6H PRN PRN Reason: Itching or Nausea Last Admin: 03/09/21 10:25 Dose: 25 mg Documented by: NAVEEN Docusate Sodium (Docusate Sodium 100 Mg Cap) 100 mg PO Q12H PRN PRN Reason: Constipation Last Admin: 03/09/21 22:01 Dose: 100 mg Documented by: EDUARD Ephedrine Sulfate (Ephedrine 50 Mg/Ml Sdv) 5 mg IVPUSH SEECOMMENT PRN PRN Reason: Other Famotidine (Famotidine 20 Mg Tab) 20 mg PO DAILY [facility] Last Admin: 03/09/21 10:07 Dose: 20 mg Documented by: NAVEEN Hydroxyzine HCl (Hydroxyzine Hcl 25 Mg Tab) 50 mg PO QID [facility] Last Admin: 03/09/21 22:04 Dose: 50 mg Documented by: Admin: 03/09/21 17:00 Dose: 50 mg Documented by: Admin: 03/09/21 13:39 Dose: 50 mg Documented by: NAVEEN Lactated Ringer's (Ringers, Lactated) 1,000 mls @ 125 mls/hr IV ASDIRECTED [facility] Last Admin: 03/09/21 06:28 Dose: 125 mls/hr Documented by: Infusion: 03/09/21 00:30 Dose: 125 mls/hr Documented by: Admin: 03/08/21 16:30 Dose: 125 mls/hr Documented by: NAVEEN Lactated Ringer's (Ringers, Lactated) 1,000 mls @ 500 mls/hr IV .BOLUS [facility] Tranexamic Acid 1,000 mg/ (Sodium Chloride) 110 mls @ 660 mls/hr IV ONETIME PRN PRN Reason: Bleeding Oxytocin/Sodium Chloride (Pitocin In Ns 30 Unit/500 Ml) 30 unit in 500 mls @ 2 mls/hr IV TITRATE [facility]; Protocol Last Admin: 03/08/21 14:47 Dose: 125 munits/min, 125 mls/hr Documented by: FREDY Lactated Ringer's (Ringers, Lactated) 1,000 mls @ 125 mls/hr IV ASDIRECTED [facility] Last Admin: 03/08/21 21:48 Dose: 125 mls/hr Documented by: FRANCISCA Tranexamic Acid 1,000 mg/ (Sodium Chloride) 110 mls @ 660 mls/hr IV ONETIME PRN PRN Reason: Bleeding Ibuprofen (Ibuprofen 800 Mg Tab) 800 mg PO Q8H PRN PRN Reason: Cramping Last Admin: 03/09/21 17:00 Dose: 800 mg Documented by: NAVEEN Methylergonovine Maleate (Methylergonovine 0.2 Mg Tab) 0.2 mg PO ONETIME PRN PRN Reason: Excessive vaginal bleeding Methylergonovine Maleate (Methylergonovine 0.2 Mg/1 Ml Amp) 0.2 mg IM ONETIME PRN PRN Reason: Excessive Vaginal Bleeding Misoprostol (Misoprostol 400 Mcg (4 X 100 Mcg Tab)) 800 mcg RECTAL ASDIRECTED PRN PRN Reason: Excessive bleeding Naloxone HCl (Naloxone 2 Mg/2 Ml Syringe) 0.1 mg IVPUSH SEECOMMENT PRN PRN Reason: Respiratory Depression Ondansetron HCl (Ondansetron 4 Mg/2 Ml Sdv) 4 mg IVPUSH Q4H PRN PRN Reason: Nausea/Vomiting Last Admin: 03/08/21 20:39 Dose: 4 mg Documented by: Admin: 03/08/21 16:38 Dose: 4 mg Documented by: NAVEEN Oxycodone/Acetaminophen (Acetaminophen/Oxycodone 325-5 Mg Tab) 1 tab PO Q4H PRN PRN Reason: Pain (moderate 4-6) Oxycodone/Acetaminophen (Acetaminophen/Oxycodone 325-5 Mg Tab) 2 tab PO Q4H PRN PRN Reason: Pain (moderate 4-6) Last Admin: 03/10/21 03:04 Dose: 2 tab Documented by: Admin: 03/09/21 22:01 Dose: 2 tab Documented by: Admin: 03/09/21 17:01 Dose: 2 tab Documented by: NAVEEN Oxytocin (Oxytocin 10 Units/1 Ml Sdv) 10 unit IM ONETIME PRN PRN Reason: Excessive vaginal bleeding Prenat Multivit/[employer]/Iron/Folic Ac ( Multivitamin With Calcium/Folic Acid/Iron Tab) 1 each PO DAILY [facility] Admin: 03/09/21 10:07 Dose: 1 each Documented by: NAVEEN Simethicone (Simethicone 80 Mg Tab.Chew) 160 mg PO QID [facility] Admin: 03/09/21 22:01 Dose: 160 mg Documented by: Admin: 03/09/21 17:00 Dose: 160 mg Documented by: Admin: 03/09/21 13:39 Dose: 160 mg Documented by: Admin: 03/09/21 10:07 Dose: 160 mg Documented by: Admin: 03/08/21 20:34 Dose: Not Given Documented by: Admin: 03/08/21 20:34 Dose: Not Given Documented by: NAVEEN Sodium Chloride (Sodium Chloride 0.9% 10 Ml Syringe) 10 ml FLUSH ASDIRECTED PRN PRN Reason: Keep Vein Open - Assessment Assessment (Free Text/Narrative):: PPD/POD # 2 S/P Repeat section Doing well Desires to go home today Anemia secondary to blood loss Undesired fertility - Plan Plan (Free Text/Narrative):: Discharge to home Follow-up with Dr. Mishra next Wednesday for wound check Follow-up for Laproscopic bilateral tubal ligation at 6 weeks All questions answered. Percocet/Ibuprofen for pain PNV and Iron daily
--- NOTE | 2021-03-10 05:28 | DISCH ---
INDICATION FOR ADMISSION: Ms. Rogers is a 31-year-old, 5, para 3-1- 0-4 female at 38-1/7th weeks gestation, who reported to [facility] in the Labor and Delivery because of increasing contractions and from bleeding. She did have 4 previous sections, so a repeat section was called and accomplished. The patient delivered a viable male weighing 7 pounds 6 ounces, 20 inches long with score of 8 at 1 minute and 9 at 5 minute. She had a large amount of scarring, but other than that, everything went great with the surgery. She was taken from the operating room to recovery and to the OB floor. She tolerated the rest of her hospital stay quite well. She was itching quite a bit after and before surgery, so she was given Vistaril 50 mg every 6 hours to help, which helped tremendously. She tolerated her diet well and ambulated well. She had minimal lochia. Her incision did well with no erythema or drainage noted. She did have slight ecchymosis around the right side of the incision. She was discharged to home on postop day #2. LABORATORY AND DIAGNOSTIC STUDIES: On 03/08/2021, WBC 10.2, hemoglobin 11.4, hematocrit 35.1, and platelet count 140,000. On 03/09/2021, WBC 10.0, hemoglobin 9.2, hematocrit 28.6, and platelet count 139,000. Blood type O positive. Antibody screen negative. COVID-19 testing was negative. DISCHARGE INSTRUCTIONS: 1. Discharged to home. 2. Follow up with Dr. Mishra in 1 week for wound check. 3. Ibuprofen 800 mg 1 tablet every 8 hours p.r.n. for pain. 4. Percocet 5/325 mg 1 tablet every 6 to 8 hours p.r.n. for pain. 5. No douching, tampons, intercourse for 6 weeks. 6. The patient to follow up at 6-week checkup and she will have a laparoscopic bilateral tubal ligation schedule. 7. Discharge instructions including activity, followup, medications, diet and wound care were discussed with the patient. She understands these and is willing to comply with these. DISCHARGE DIAGNOSES: 1. A 38-1/7th weeks intrauterine . 2. Early labor. 3. Previous section x4. 4. Previous uterine dehiscence. 5. Repeat low transverse section via Pfannenstiel skin incision with delivery of a viable male weighing 7 pounds 6 ounces, 20 inches long with score of 8 at 1 minute and 9 at 5 minutes. 6. Spinal anesthesia with Duramorph. 7. Acute anemia secondary to blood loss. 8. Undesired fertility. [facility] /[id number]
[2021-03-10] MEDS: Famotidine 20 MG Tab PO SCH (08:50)
[2021-03-10] MEDS: hydrOXYzine HCl 25 MG Tab PO SCH (08:50)
[2021-03-10] MEDS: Prenatal Multivitamin with Calcium/Folic Acid/Iron Tab PO SCH (08:50)
[2021-03-10] MEDS: Simethicone 80 MG Tab.Chew PO SCH (08:50)
[2021-03-10] MEDS: Docusate Sodium 100 MG Cap PO PRN (08:50)
[2021-03-10] MEDS ORDERED: ceFAZolin 2 GM in Premix Bag 1 BAG IV ONE (11:29)
== END 2021-03-10 11:30 | disposition home or self-care (01) | DRG 787 ==
LOC: DL.SDS 12:39 → EEVIPCON 12:47 → DL.MS 12:47
PROVIDERS: ADMIT Obstetrics & Gynecology; ATTEND Obstetrics & Gynecology
PROC: 10D00Z1 Extraction of Products of Conception, Low, Open Approach (ICD-10-PCS; principal; 2021-03-08)
DX: O34.211 Maternal care for low transverse scar from previous cesarean delivery (principal); D62 Acute posthemorrhagic anemia; O99.02 Anemia complicating childbirth; O99.334 Smoking (tobacco) complicating childbirth; F17.210 Nicotine dependence, cigarettes, uncomplicated; O26.893 Other specified pregnancy related conditions, third trimester; L29.9 Pruritus, unspecified; Z37.0 Single live birth; Z3A.38 38 weeks gestation of pregnancy; Z28.82 Immunization not carried out because of caregiver refusal
CPT/HCPCS: 36415; 85025; 85027; 86850; 86900; 86901; A9270-GY; J0690; J1200; J1885; J2270; J2405; J2590; J7120